=== PATIENT | female | born 1950 | race Caucasian/White ===

== ENCOUNTER 2018-07-04 00:30 | Inpatient (IN) | payer OTHER ==
[2018-07-04] VITALS (7 sets, daily range): BP systolic 116–161; BP diastolic 52–98
[~2018-07-04] VITALS: Ht 165.1 cm; Wt 99.8 kg
[2018-07-04 01:31] LABS: CALCIUM 9.1 mg/dL (8.5-10.1); CREATININE 1.4 mg/dL (0.6-1.3)
[2018-07-04 01:31] LABS: BE -0.7 mmol/L (-2 to +3); HCO3 22.2 mmol/L (22.0-26.0); PCO2 29.9 mmHg (35.0-45.0); PO2 63.7 mmHg (75.0-100.0); pH 7.488 (7.340-7.450)
[2018-07-04 01:36] LABS: ALBUMIN 2.8 g/dL (3.4-5.0); TOTAL BILIRUBIN 0.5 mg/dL (<0.1-1.0); TOTAL PROTEIN 6.2 g/dL (6.4-8.2)
[2018-07-04 01:38] LABS: HEMATOCRIT 25.2 % (37.0-47.0); HEMOGLOBIN 8.3 gm/dL (12.0-15.0); MCH 31.8 pg (26.0-34.0); MCHC 32.8 g/dL (28.0-37.0); MCV 96.9 fL (80.0-100.0); MPV 7.3 fl. (7.2-11.1); PLATELET COUNT* 317 thou/uL (150-400); RDW-CV 15.3 % (10.5-14.5); WBC 10.1 thou/uL (4.0-11.0)
[2018-07-04 01:39] LABS: NUCLEATED RBCS 0 /100WBC
[2018-07-04 01:51] LABS: APTT 29.1 Seconds (25.0-31.3); PROTIME 10.3 Seconds (9.20-11.50)
[2018-07-04 02:02] LABS: URINE BILIRUBIN NEGATIVE (Negative); URINE BLOOD NEGATIVE (Negative); URINE CLARITY CLEAR; URINE COLOR YELLOW; URINE GLUCOSE-RANDOM 3+ (Negative); URINE KETONES NEGATIVE (Negative); URINE LEUKOCYTES-REFLEX NEGATIVE (Negative); URINE NITRITE-REFLEX NEGATIVE (Negative); URINE PROTEIN TRACE (Negative); URINE SPECIFIC GRAVITY 1.015 (1.005-1.030); URINE UROBILINOGEN 0.2 E.U./dl (0.2-1.0)
[2018-07-04 05:06] LABS: ABSOLUTE LYMPHOCYTES 1.1 thou/uL (0.8-5.3); ABSOLUTE MONOCYTES 0.6 thou/uL (0.0-1.2); ABSOLUTE NEUTROPHILS 8.4 thou/uL (1.6-8.1)
[2018-07-04 05:07] LABS: ANISOCYTOSIS 1+; PLATELET ESTIMATE ADEQUATE; TOXIC GRANULATION Occasional
--- NOTE | 2018-07-04 05:54 | NUR ---
RECEIVED REPORT FROM ED. PT TRANSFERRED TO 213. PT A&OX4. VSS. ADMISSION HISTORY AND PHYSICAL ASSESSMENT COMPLETED. PT ON O2 AT 4L WITH 98% O2 SAT. PT TRACING SR PVC ON TELE. PT UP STANDBY ASSIST TO TOILET DUE TO RECENT FALL LIKE 2 WKS AGO. PT HAS A FRACTURE ON HER RIGHT ARM COVERED WITH CAST & SPLINT WITH PLATES & SCREWS ACCORDING TO PT. PT C/O OF RIGHT ARM RADIATING TO CHEST PAIN-PAIN MEDS GIVEN PER MAR WITH PARTIAL RELIEF. PT INSTRUCTED ON NPO ORDERED. COMMUNICATES UNDERSTANDING. ACCORDING TO PT SHE CANT TAKE IBUPROFEN/ TYLENOL PER HER ACO COORDINATOR. PT REFUSED TO SIGN CONSENT FOR TREATMENT OF NOW SHE WAS NOT SURE IF THE INSURANCE WILL COVER HER HOSPITAL BILL.PT ALSO REQUESTED TO TALK TO CASE MANAGEMENT. PT IS UNSURE OF HER MEDICATIONS AND WERE AWAITING FOR MEDICAL RECORDS FROM [facility] WHERE SHE WAS ADMITTED FOR 2 WKS AND WAS JUST DISCHARGED YESTERDAY. MEDICAL RECORDS REQUEST FORM WAS FAXED THIS AM. PT ORIENTED TO ROOM AND CALL LIGHT. CALL LIGHT WITHIN REACH. BED IN LOW POSITION. BED ALARM ON.
[2018-07-04] MEDS ORDERED: NOVOLOG100 UNIT/1 SUBQ (09:53)
[2018-07-04] MEDS ORDERED: LANTUS SUBQ (09:53)
[2018-07-04] MEDS ORDERED: ASPIR 8181 M1 PO (09:54)
--- NOTE | 2018-07-04 15:13 | NUR ---
PT.ADMITTED TODAY. HAS MANY CONCERNS REGARDING WHAT WILL BE COVERED UNDER HER INSURANCE AND WHAT WON'T BE COVERED. EXPLAINED EVERYTHING WILL BE COVERED UNDER HER INPT.DRG STAY. SHE WILL HAVE TO PAY DAILY HOSPITAL FEE REQUIRED BY HER INSURANCE. SHE HAD MANY COMPLAINTS REGARDING HER STAY [place] [facility]. WAS DISCHARGED YESTERDAY FROM THERE. SHE HAD FALLEN AT THE [facility] AND WAS TAKEN THERE FOR FX R ARM/ELBOW. HAD SURGERY AND HAD TO STAY APPROX.2 WKS. VERY CONCERNED IF SHE WILL NEED O2 AT DISCHARGE AND HOW MUCH IT WILL COST. ALSO CONCERNED IF SHE IS ON THE CORRECT MEDICATIONS OR NOT. CONCERNS DISCUSSED WITH OMID VALLES. SHE AGREED TO HAVE HER VQ SCAN. TRANSPORTER WILL RETURN TO PICK HER UP. PT.LIVES ALONE. HER SON, OSVALDO,STAYS WITH HER ALOT. SHE USES A CANE. DAUGHTER IS ALSO SUPPORTIVE. CM WILL FOLLOW FOR DISCHARGE.
--- NOTE | 2018-07-04 15:32 | 2DMMODE ---
[place] [address] 2 D/M-MODE ECHOCARDIOGRAM Name: GUCCI GUTHRIE Room: [address] IN [facility]#: [id number] Admission: 07/04/18 Attend Phys: Jose Luis Gaspar Discharge: Date of : 48 Date of Service: 07/04/18 1531 Report #: [id number] THIS REPORT FOR: //name// APPROVED REPORT Study performed: 07/04/2018 10:51:12 EXAM: Comprehensive 2D, Doppler, and color-flow Echocardiogram Patient Location: In-Patient Room #: Count includes the [facility] Status: routine BSA: 2.06 HR: 70 bpm BP: 126/98 mmHg Rhythm: NSR Other Information Study Quality: Good Indications Dyspnea 2D Dimensions IVSd: 11.34 (7-11mm) LVOT Diam: 19.44 (18-24mm) LVDd: 59.46 mm PWd: 9.84 (7-11mm) Ascending Ao: 31.40 (22-36mm) LVDs: 46.31 (25-40mm) Aortic Root: 28.97 mm Volumes Left Atrial Volume (Systole) LA ESV Index: 26.60 mL/m2 Aortic Valve AoV Peak Kaiser.: 1.57 m/s AO Peak Gr.: 9.87 mmHg LVOT Max P.20 mmHg AO Mean Gr.: 5.65 mmHg LVOT Mean P.00 mmHg LVOT Max V: 1.02 m/s AO V2 VTI: 32.01 cm LVOT Mean V: 0.65 m/s MATT (VTI): 2.08 cm2 LVOT V1 VTI: 22.38 cm Mitral Valve E/A Ratio: 1.46 MV Decel. Time: 176.38 ms MV E Max Kaiser.: 1.34 m/[place] [address] 2 D/M-MODE ECHOCARDIOGRAM Name: GUCCI GUTHRIE Room: [address] IN .R.#: [id number] Admission: 07/04/18 Attend Phys: Jose Luis Gaspar Discharge: Date of : 48 Date of Service: 07/04/18 1531 Report #: [id number] MV PHT: 51.15 ms MVA (PHT): 4.30 cm2 TDI E/Lateral E': 9.57 E/Medial E': 22.33 Medial E' Kaiser.: 0.06 m/s Lateral E' Kaiser.: 0.14 m/s Pulmonary Valve PV Peak Kaiser.: 1.05 m/s PV Peak Gr.: 4.42 mmHg Tricuspid Valve RAP Estimate: 5.00 mmHg TR Peak Gr.: 31.15 mmHg RVSP: 36.00 mmHg PA Pressure: 36.00 mmHg Left Ventricle Left ventricle is mildly dilated. There is global hypokinesis with akinesis of the inferior wall. There is normal left ventricular wall thickness. Left ventricular systolic function is mildly decreased. LVEF is 40-45%. Transmitral Doppler flow pattern suggests restrictive physiology. Right Ventricle The right ventricle is normal size. The right ventricular systolic function is normal. Atria The left atrium size is normal. The right atrium size is normal. Aortic Valve The aortic valve is normal in structure. No aortic regurgitation is present. There is no aortic valvular stenosis. Mitral Valve The mitral valve is normal in structure. Trace mitral regurgitation. No evidence of mitral valve stenosis. Tricuspid Valve The tricuspid valve is normal in structure. Mild tricuspid regurgitation. Mild pulmonary hypertension. Pulmonic Valve The pulmonary valve is normal in structure. Trace [place] [address] 2 D/M-MODE ECHOCARDIOGRAM Name: GUCCI GUTHRIE Room: [address] IN [facility]#: [id number] Admission: 07/04/18 Attend Phys: Jose Luis Gaspar Discharge: Date of : 48 Date of Service: 07/04/18 1531 Report #: [id number] Great Vessels The aortic root is normal in size. IVC is normal in size and collapses >50% with inspiration. Pericardium There is no pericardial effusion. <Conclusion> Left ventricle is mildly dilated. There is normal left ventricular wall thickness. Left ventricular systolic function is mildly decreased. LVEF is 40-45%. Transmitral Doppler flow pattern suggests restrictive physiology. There is global hypokinesis with akinesis of the inferior wall. Trace mitral regurgitation. Mild tricuspid regurgitation. Mild pulmonary hypertension. IVC is normal in size and collapses >50% with inspiration. <ELECTRONICALLY SIGNED> By: Jovani Saleem MD, FACC 07/04/18 [phone] Jovani Saleem MD, FACC /INF
[2018-07-04] MEDS ORDERED: LOPRESSOR50 PO (16:34)
[2018-07-04] MEDS ORDERED: LIPITOR80 MG PO (16:35)
[2018-07-04] MEDS ORDERED: GABAPENTIN 100100 MG PO (16:40)
--- NOTE | 2018-07-04 16:43 | EKG ---
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: [facility] : 1950 Requested By: Marika Mcgee Order Number: [id number] MD: Trev Hu Measurements Intervals [place] Rate: 94 P: 50 VT: 168 QRS: 5 QRSD: 92 T: 63 QT: 378 QTc: 473 Interpretive Statements Sinus rhythm ST depr, consider ischemia, anterolateral lds Compared to ECG 06/13/2012 11:52:13 Possible ischemia now present Electronically Signed On 07-04-2018 16:43:04 CDT by Trev Hu [email or web address] <ELECTRONICALLY SIGNED> By: Terv Hu MD, [facility] 07/04/18 1643 0043 0043 Trev Hu MD, [facility] /EPI
[2018-07-04] MEDS ORDERED: TYLENOL EXTRA500 MG PO (16:46)
[2018-07-04] MEDS ORDERED: SYNTHROID50 MCG PO (16:48)
[2018-07-04] MEDS ORDERED: ACCUPRIL10 MG PO (16:50)
--- NOTE | 2018-07-04 18:01 | NUR ---
PT ALERT AND ORIENTED X4. PT SATURATION MAINTAINED TO 97% WITH 4L O2, TITRATED DOWN TO 3L AT 1000, SAT 96%. NO SIGNS OF DYSPNEA. UP BY STANDBY ASSIST. WAS CONCERNED ABOUT HER FINANCIAL SITUATION AND INSURANCE COVERAGE, CM NOTIFIED. PT IS IN FLUID RESTRICTION OF 2000ML IN 24HRS INCLUDING IV FLUIDS. SLIDING SCALE INSULIN GIVEN. CARB CONTROL DIET. HAS BACK PROBLEMS, CANT BE IN ONE POSITION FOR TOO LONG, PT STATED, LIKES TO SIT BEDSIDE TIME TO TIME. SEEN SLEEPING IN THE ROOM WHILE HOURLY ROUNDS. HAS GOOD APPETITE. HOURLY ROUNDINGS DONE FOR PT SAFETY. COMPLAINED OF PAIN IN RT ARM, PRN HYDROCODONE GIVEN. FALL PRECAUTIONS MAINTAINED. CALL LIGHT WITHIN REACH. WILL CONTINUE TO MONITOR
[2018-07-04 19:08] LABS: eGFR IF AFRICAN AMERICAN 54 (>59)
[2018-07-04 23:07] LABS: GLYCOHEMOGLOBIN (HGB A1C) 9.6 % (4.8-5.6)
[2018-07-05] VITALS: BP 116/58
[2018-07-05 03:07] LABS: PARATHYROID HORMONE 50 pg/mL (15-65)
[2018-07-05 04:00] VITALS: BP 130/53
[2018-07-05 04:28] LABS: ABSOLUTE BASOPHILS 0.1 thou/uL (0.0-0.2); ABSOLUTE EOSINOPHILS 0.3 thou/uL (0.0-0.7); ABSOLUTE LYMPHOCYTES 1.9 thou/uL (0.8-5.3); ABSOLUTE MONOCYTES 0.9 thou/uL (0.0-1.2); BASOPHILS 1.1 %; EOSINOPHILS 2.7 %; HEMATOCRIT 21.6 % (37.0-47.0); HEMOGLOBIN 7.2 gm/dL (12.0-15.0); LYMPHOCYTES 20.4 %; MCH 31.1 pg (26.0-34.0); MCHC 33.2 g/dL (28.0-37.0); MCV 93.5 fL (80.0-100.0); MONOCYTES 10.1 %; MPV 6.6 fl. (7.2-11.1); NUCLEATED RBCS 0 /100WBC; PLATELET COUNT* 366 thou/uL (150-400); POLYS 65.7 %; RBC 2.31 mil/uL (4.20-5.00); RDW-CV 14.2 % (10.5-14.5); WBC 9.2 thou/uL (4.0-11.0)
[2018-07-05 04:52] LABS: % SATURATION 13 % (20-39); IRON 20 ug/dL (50-175)
--- NOTE | 2018-07-05 04:52 | NUR ---
ASSUMED CARE OF PT AFTER REPORT AT 1930. PT A&OX4. VSS. PHYSICAL ASSESSMENT COMPLETED AND CHARTED. PT ON O2 AT 2L WITH 96% O2 SAT. PT TRACING SR ON TELE. PT UP STANDBY TO TOILET. PT C/O OF RIGHT ARM PAIN RADIATING TO CHEST-PAIN MEDS GIVEN PER MAR WITH PARTIAL RELIEF. PT REQUESTED FOR ADDITIONAL PAIN MEDS-DR SANCHEZ INFORMED WITH NEW ORDERS. WASHED PT HAIR PER PTS REQUEST. PT RESTED WELL ON BED. CALL LIGHT WITHIN REACH. BED IN LOW POSITION. BED ALARM ON.
[2018-07-05 04:54] LABS: ALBUMIN 2.4 g/dL (3.4-5.0); CALCIUM 8.8 mg/dL (8.5-10.1); CREATININE 1.5 mg/dL (0.6-1.3); PHOSPHORUS* 4.1 mg/dL (2.5-4.9); POTASSIUM 4.5 mmol/L (3.5-5.1); TOTAL BILIRUBIN 0.4 mg/dL (<0.1-1.0); TOTAL PROTEIN 6.2 g/dL (6.4-8.2)
[2018-07-05 08:07] VITALS: BP 129/67
[2018-07-05 11:58] VITALS: BP 130/66
[2018-07-05] MEDS ORDERED: LASIX 20 MG TAB20 MG PO (13:55)
[2018-07-05 15:17] VITALS: BP 130/66
[2018-07-05 15:32] VITALS: BP 130/66
--- NOTE | 2018-07-05 15:33 | NUR ---
Pt discharging to home today and qualifies for home o2. Referral sent to [facility], they will deliever tank
--- NOTE | 2018-07-05 16:30 | NUR ---
VSS, ASSUMED CARE OF PT IN THE AM, ASSESSMENT PERFORMED AND CHARTED FALL PRECAUTIONS IN PLACE AND CALL LIGHT IN REACH, PT IS A&O4 ON 2L NC AND STATES PAIN IN HER RIGHT ARM, PT GOAL IS TO IMPROVE BREATHING AND D/C TO HOME, PT IS TRACING SR ON THE MONITOR AND SHE IS UP WTIH AD MOON, AT THIS TIME PT HAS RECIEVED D/C ORDERS AND FILLED OUT MEDITCATIONS, HOME O2 HAS BEEN SET UP AND IV AND TELE MONITOR TAKEN OUT ALL BELONGINGS GATHERED AND PLACE WITH PT, WILL FOLLOW WITH PLAN OF CARE, HOURLY ROUNDS COMPLETED,
[2018-08-11] MEDS ORDERED: NOVOLOG100 UNIT/1 SUBQ (05:08)
[2018-08-11] MEDS ORDERED: VITAMIN B-12500 MCG PO (05:09)
[2018-08-11] MEDS ORDERED: VITAMIN D1000 UNI1 PO (05:10)
[2018-08-11] MEDS ORDERED: CUBICIN500 MG IVPB (05:13)
[2018-08-11] MEDS ORDERED: NORCO 5-325 TA1 EACH PO (05:14)
[2018-08-11] MEDS ORDERED: COLACE100 MG PO (05:14)
[2018-08-11] MEDS ORDERED: MIRALAX17 GM PO (05:14)
[2018-08-11] MEDS ORDERED: CENTRUM SILVER1 EAC2 PO (05:15)
[2018-08-11] MEDS ORDERED: VITAMIN E400 UNIT PO (05:15)
[2018-08-11] MEDS ORDERED: SPIRONOLACTONE25 M1 PO (05:16)
== END 2018-07-05 18:05 | disposition home or self-care (01) | DRG 682 ==
LOC: M.ERS 00:30 → M.TBA-ER 03:01 → M.2W 03:01
PROVIDERS: Family Medicine; Personal Emergency Response Attendant; ADMIT Internal Medicine
DX: N17.9 Acute kidney failure, unspecified (principal); I50.33 Acute on chronic diastolic (congestive) heart failure; J96.20 Acute and chronic respiratory failure, unspecified whether with hypoxia or hypercapnia; I13.0 Hypertensive heart and chronic kidney disease with heart failure and stage 1 through stage 4 chronic kidney disease, or unspecified chronic kidney disease; S42.301A Unspecified fracture of shaft of humerus, right arm, initial encounter for closed fracture; I25.10 Atherosclerotic heart disease of native coronary artery without angina pectoris; N18.3 Chronic kidney disease, stage 3 (moderate); D50.9 Iron deficiency anemia, unspecified; K76.0 Fatty (change of) liver, not elsewhere classified; E11.319 Type 2 diabetes mellitus with unspecified diabetic retinopathy without macular edema; E11.22 Type 2 diabetes mellitus with diabetic chronic kidney disease; G89.29 Other chronic pain; M54.9 Dorsalgia, unspecified; Z60.2 Problems related to living alone; Z95.5 Presence of coronary angioplasty implant and graft; Z79.899 Other long term (current) drug therapy; Z88.6 Allergy status to analgesic agent; Z79.4 Long term (current) use of insulin; Z82.49 Family history of ischemic heart disease and other diseases of the circulatory system; Z83.3 Family history of diabetes mellitus; Z90.710 Acquired absence of both cervix and uterus; I25.2 Old myocardial infarction; Z28.21 Immunization not carried out because of patient refusal; W18.39XA Other fall on same level, initial encounter; Y93.89 Activity, other specified; Y92.89 Other specified places as the place of occurrence of the external cause; Y99.8 Other external cause status

== ENCOUNTER 2019-07-10 11:17 | Inpatient (IN) | payer OTHER ==
[2019-07-10] VITALS (11 sets, daily range): BP systolic 104–148; BP diastolic 50–82
[~2019-07-10] VITALS: Ht 165.1 cm; Wt 101.2 kg
[~2019-07-10 11:17] MED LIST: ACCUPRIL10 MG PO; ASPIR 8181 M1 PO; CEFUROXIME250 MG PO; CENTRUM SILVER1 EAC2 PO; COLACE100 MG PO; CUBICIN500 MG IVPB; DAPTOMYCIN500 MG IV; FUROSEMIDE 40 M40 MG PO; GABAPENTIN 100100 MG PO; IRON325 PO; LANTUS SUBQ; LASIX 20 MG TAB20 MG PO; LIPITOR80 MG PO; LOPRESSOR50 PO; METOPROLOL SUCC50 MG PO; MIRALAX17 GM PO; NORCO 10-325 T1 EACH PO; NORCO 5-325 TA1 EACH PO; NOVOLOG100 UNIT/1 SUBQ; SPIRONOLACTONE25 M1 PO; SYNTHROID50 MCG PO; TYLENOL EXTRA500 MG PO; VITAMIN B-12500 MCG PO; VITAMIN D1000 UNI1 PO; VITAMIN E400 UNIT PO
--- NOTE | 2019-07-10 12:02 | NUR ---
PROVIDER NOTIFIED OF B/P
[2019-07-10 12:06] LABS: ABSOLUTE BASOPHILS 0.1 thou/uL (0.0-0.2); ABSOLUTE EOSINOPHILS 0.5 thou/uL (0.0-0.7); ABSOLUTE LYMPHOCYTES 1.2 thou/uL (0.8-5.3); ABSOLUTE MONOCYTES 0.6 thou/uL (0.0-1.2); ABSOLUTE NEUTROPHILS 5.2 thou/uL (1.6-8.1); BASOPHILS 1.2 %; EOSINOPHILS 6.1 %; HEMATOCRIT 27.3 % (37.0-47.0); HEMOGLOBIN 9.2 gm/dL (12.0-15.0); LYMPHOCYTES 16.3 %; MCHC 33.6 g/dL (28.0-37.0); MCV 95.1 fL (80.0-100.0); MONOCYTES 8.1 %; MPV 7.2 fl. (7.2-11.1); NUCLEATED RBCS 0 /100WBC; PLATELET COUNT* 320 thou/uL (150-400); POLYS 68.3 %; RBC 2.87 mil/uL (4.20-5.00); RDW-CV 13.5 % (10.5-14.5); WBC 7.6 thou/uL (4.0-11.0)
[2019-07-10 12:10] LABS: PROTIME 10.4 Seconds (9.20-11.50)
[2019-07-10 12:11] LABS: CALCIUM 8.8 mg/dL (8.5-10.1); POTASSIUM 3.9 mmol/L (3.5-5.1)
[2019-07-10 12:22] LABS: ALBUMIN 2.8 g/dL (3.4-5.0); TOTAL BILIRUBIN 0.4 mg/dL (<0.1-1.0); TOTAL PROTEIN 6.2 g/dL (6.4-8.2)
[2019-07-10 13:06] LABS: URINE BILIRUBIN NEGATIVE (Negative); URINE BLOOD NEGATIVE (Negative); URINE CLARITY CLEAR; URINE COLOR YELLOW; URINE GLUCOSE-RANDOM 2+ (Negative); URINE KETONES NEGATIVE (Negative); URINE LEUKOCYTES-REFLEX NEGATIVE (Negative); URINE NITRITE-REFLEX NEGATIVE (Negative); URINE PROTEIN 2+ (Negative); URINE SPECIFIC GRAVITY 1.025 (1.005-1.030); URINE UROBILINOGEN 0.2 E.U./dl (0.2-1.0)
[2019-07-10 13:16] LABS: CASTS None Seen /LPF (None Seen); CRYSTALS None Seen /LPF (None Seen); SQUAMOUS 4-10 Moderate /LPF (0-3); URINE RBC 0-2 Rare /HPF (0-2); URINE WBC-REFLEX 0-5 Rare /HPF (0-5)
--- NOTE | 2019-07-10 16:16 | EKG ---
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 : 1950 Requested By: Eric Owen Order Number: [id number] MD: Trev Hu Measurements Intervals [place] Rate: 69 P: 32 NC: 171 QRS: -10 QRSD: 98 T: 61 QT: 443 QTc: 475 Interpretive Statements Sinus rhythm Left ventricular hypertrophy Baseline wander in lead(s) V1 Compared to ECG 07/04/2018 00:43:36 Left ventricular hypertrophy now present Possible ischemia no longer present Electronically Signed On 07-10-2019 16:16:04 CDT by Trev Hu [email or web address] <ELECTRONICALLY SIGNED> By: Trev Hu MD, FACC 07/10/19 1616 1124 1124 Trev Hu MD, [facility] /EPI
--- NOTE | 2019-07-10 18:54 | NUR ---
THIS WATER PLANT PUMP OPERATOR ASSUMED CARE OF PT AT 1545 PRESENTED IN THE ER BY EMS FOR HYPOTENSION, DIZZNIESS, AND DEHYDRATION. pT RECEIVED [address] THE WAY TO ER AND 1L IN ER. PRESSURE ARE STABLE PT IS MED SURG/TELEY STATUS
[2019-07-11] VITALS (7 sets, daily range): BP systolic 134–178; BP diastolic 50–72
[2019-07-11 03:50] LABS: CALCIUM 8.8 mg/dL (8.5-10.1); CREATININE 1.6 mg/dL (0.6-1.3); POTASSIUM 3.5 mmol/L (3.5-5.1)
--- NOTE | 2019-07-11 06:56 | NUR ---
Pt reports she did not sleep well overnight due to back pain (chronic 2/T spinal stenosis). Requested home dose of gabapentin, dose received approx. 0445. At 0520, pt c/o nausea and pain to right side of chest, non-radiating, rates /10. 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 BP 160/69, BG 191. EKG performed, appears unchanged from EKG from ED on 07/10. Paged Dr. Pereyra, orders received for zofran. Pt appeared to be asleep soon afterwards. Reports earlier in shift that she is hopeful of being discharged today. Still awaiting medical records from recent stay at [facility] to verify medications (pt cannot remember all medications in detail). Will continue to monitor.
--- NOTE | 2019-07-11 09:41 | NUR ---
8500 ASSUMED CARE OF PATIENT. SEE DOCUMENTED ASSESSMENT. PT C/O EPIGASTRIC PAIN AND NAUSEA. MESSAGE TO DR CHRISTINA MCKEON. PT IS TELE STATUS IN THE ICU
--- NOTE | 2019-07-11 10:34 | NUR ---
REPORT CALLED TO EDGARDO. PATIENT IS FEELING BETTER.
--- NOTE | 2019-07-11 10:59 | NUR ---
1045 REPORT TO EDGARDO ANNE. TRANSFERRED TO ROOM 205 WITH ALL RECORDS AND BELONGINGS.
--- NOTE | 2019-07-11 11:26 | NUR ---
ICU rounds: Continues to be nauseous, Pt is tele status and has orders to transfer to room 205. Pt is A&O. Resides at home, son lives with her. Independent. Pt uses a cane for mobility. No hx of HH. Hx of skilled at [facility]. Goal is home at dc, no needs anticipated.
[2019-07-11 12:00] LABS: ABSOLUTE BASOPHILS 0.1 thou/uL (0.0-0.2); ABSOLUTE EOSINOPHILS 0.6 thou/uL (0.0-0.7); ABSOLUTE LYMPHOCYTES 1.8 thou/uL (0.8-5.3); ABSOLUTE MONOCYTES 0.8 thou/uL (0.0-1.2); ABSOLUTE NEUTROPHILS 6.3 thou/uL (1.6-8.1); BASOPHILS 1.4 %; EOSINOPHILS 6.3 %; HEMATOCRIT 27.8 % (37.0-47.0); HEMOGLOBIN 9.4 gm/dL (12.0-15.0); LYMPHOCYTES 18.9 %; MCH 32.3 pg (26.0-34.0); MCHC 33.8 g/dL (28.0-37.0); MCV 95.4 fL (80.0-100.0); MONOCYTES 8.4 %; MPV 7.4 fl. (7.2-11.1); NUCLEATED RBCS 0 /100WBC; PLATELET COUNT* 318 thou/uL (150-400); RBC 2.91 mil/uL (4.20-5.00); RDW-CV 13.7 % (10.5-14.5); WBC 9.7 thou/uL (4.0-11.0)
[2019-07-11 12:08] LABS: DIRECT BILIRUBIN 0.1 mg/dL (<0.1-0.3); TOTAL BILIRUBIN 0.3 mg/dL (<0.1-1.0)
[2019-07-11] MEDS ORDERED: PLAVIX 75 MG TA75 MG PO (13:11)
[2019-07-11] MEDS ORDERED: IMDUR 30 MG TAB30 M1 PO (13:14)
[2019-07-11] MEDS ORDERED: CARVEDILOL12.5 MG PO (13:15)
[2019-07-11] MEDS ORDERED: NORVASC2.5 M1 PO (13:23)
[2019-07-11] MEDS ORDERED: COLCHICINE0.6 M1 PO (14:33)
--- NOTE | 2019-07-11 17:26 | NUR ---
CAME UP FROM ICU AROUND 1045. AGREE WITH THE ASSESSMENT COMPLETED IN ICU. ABLE TO MAKE NEEDS KNOWN. C/O ABD PAIN AND NOTIFIED DR AND NEW ORDERS GIVEN. PT RESTING IN BED AT THIS TIME. WILL CONTINUE TO MONITOR.
[2019-07-12] VITALS: BP 132/54
[2019-07-12 04:00] VITALS: BP 126/57
[2019-07-12 04:14] LABS: HEMATOCRIT 26.2 % (37.0-47.0); HEMOGLOBIN 8.8 gm/dL (12.0-15.0); MCHC 33.5 g/dL (28.0-37.0); MCV 95.3 fL (80.0-100.0); MPV 6.9 fl. (7.2-11.1); RBC 2.75 mil/uL (4.20-5.00); RDW-CV 13.6 % (10.5-14.5); WBC 8.4 thou/uL (4.0-11.0)
[2019-07-12 04:22] LABS: CREATININE 1.4 mg/dL (0.6-1.3)
--- NOTE | 2019-07-12 05:20 | NUR ---
ASSUMED CARE OF PT AFTER REPORT AT 1930. PT A&OX4. VSS. PHYSICAL ASSESSMENT COMPLETED AND CHARTED. PT ON RA. PT TRACING SR/PVC ON TELE. PT UPSTANDBY TO RESTROOM. PT DENIES DIZZINESS OR N/V. PT ABLE TO SLEEP WELL ON BED. CALL LIGHT WITHIN REACH. CALL LIGHT WITHIN REACH.
[2019-07-12 08:00] VITALS: BP 134/56
[2019-07-12] MEDS ORDERED: CARVEDILOL3.125 MG PO (10:52)
[2019-07-12] MEDS ORDERED: NORVASC5 M1 PO (10:52)
[2019-07-12] MEDS ORDERED: NEURONTIN 300300 M1 PO (10:52)
[2019-07-12] MEDS ORDERED: REGLAN 10 MG TA10 MG PO (10:52)
[2019-07-12 11:46] VITALS: BP 134/56
[2019-07-12 12:00] VITALS: BP 135/58
--- NOTE | 2019-07-12 13:31 | NUR ---
ASSUMED PT CARE AT 0730. ASSESSMENT COMPLETED CHARTED. ABLE TO MAKE NEEDS KNOWN. UP AD MOON. NO C/O PAIN OTHER THAN CHRONIC BACK PAIN. DISCHARGE APPROVED AND GAVE PT DISCHARGE PAPERWORK, SCRIPTS, MEDICATION INFO, AND TOOK OUT IV AND TOOK OFF HEART MONITOR. PT TRANSPORTED TO [place] BY THIS NURSE IN A WHEELCHAIR AROUND 1325 WITH CAB VOUCHER. NO COMMENTS OR QUESTIONS NOTED.
--- NOTE | 2019-07-12 14:20 | EKG ---
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 Contract Representative: BRITT : 1950 Requested By: Nadja Pereyra Order Number: [id number] MD: Kamaljit Pate Measurements Intervals [place] Rate: 80 P: 46 [place]: 171 QRS: 8 QRSD: 100 T: 52 QT: 434 QTc: 501 Interpretive Statements Sinus rhythm Left ventricular hypertrophy Prolonged QT interval Compared to ECG 07/10/2019 11:24:34 Prolonged QT interval now present Electronically Signed On 07-12-2019 14:20:38 CDT by Kamaljit Pate [email or web address] <ELECTRONICALLY SIGNED> By: Adalgisa Pate MD, [facility] 07/12/19 1420 0531 0531 Adalgisa Pate MD, [facility] /EPI
--- NOTE | 2019-07-12 14:23 | EKG ---
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: : 1950 Requested By: Nadja Pereyra Order Number: [id number] MD: Kamaljit Pate Measurements Intervals [place] Rate: 80 P: 48 [place]: 168 QRS: 0 QRSD: 104 T: 55 QT: 397 QTc: 458 Interpretive Statements Sinus rhythm Ventricular premature complex Left ventricular hypertrophy Compared to ECG 07/10/2019 11:24:34 Ventricular premature complex(es) now present Electronically Signed On 07-12-2019 14:22:53 CDT by Kamaljit Pate [email or web address] <ELECTRONICALLY SIGNED> By: Adalgisa Pate MD, [facility] 07/12/19 1422 1148 1148 F. Kamaljit Pate MD, [facility] /EPI
== END 2019-07-12 13:18 | disposition home health service (06) | DRG 291 ==
LOC: M.ERS 11:17 → M.TBA-ER 13:04 → M.ICU 13:04 → M.TBA-ER 16:12 → M.ICU 16:52 → M.2W 07-11 10:57
PROVIDERS: Emergency Medicine; ADMIT Family Medicine
DX: I13.0 Hypertensive heart and chronic kidney disease with heart failure and stage 1 through stage 4 chronic kidney disease, or unspecified chronic kidney disease (principal); I50.23 Acute on chronic systolic (congestive) heart failure; N17.9 Acute kidney failure, unspecified; I95.2 Hypotension due to drugs; I25.10 Atherosclerotic heart disease of native coronary artery without angina pectoris; E11.65 Type 2 diabetes mellitus with hyperglycemia; E78.5 Hyperlipidemia, unspecified; E03.9 Hypothyroidism, unspecified; N18.3 Chronic kidney disease, stage 3 (moderate); E11.22 Type 2 diabetes mellitus with diabetic chronic kidney disease; D64.9 Anemia, unspecified; I50.9 Heart failure, unspecified; M10.9 Gout, unspecified; E11.42 Type 2 diabetes mellitus with diabetic polyneuropathy; E11.43 Type 2 diabetes mellitus with diabetic autonomic (poly)neuropathy; K31.84 Gastroparesis; G89.29 Other chronic pain; M54.9 Dorsalgia, unspecified; Z88.5 Allergy status to narcotic agent; Z95.5 Presence of coronary angioplasty implant and graft; Z88.1 Allergy status to other antibiotic agents; Z90.710 Acquired absence of both cervix and uterus; Z82.49 Family history of ischemic heart disease and other diseases of the circulatory system; Z83.3 Family history of diabetes mellitus; E86.0 Dehydration

== ENCOUNTER 2019-07-31 11:01 | Observation (INO) | payer OTHER ==
[~2019-07-31] VITALS: Ht 165.1 cm; Wt 99.8 kg
[~2019-07-31 11:01] MED LIST changes: +CARVEDILOL12.5 MG PO; +CARVEDILOL3.125 MG PO; +COLCHICINE0.6 M1 PO; +IMDUR 30 MG TAB30 M1 PO; +NEURONTIN 300300 M1 PO; +NORVASC2.5 M1 PO; +NORVASC5 M1 PO; +PLAVIX 75 MG TA75 MG PO; +REGLAN 10 MG TA10 MG PO
[2019-07-31 11:03] VITALS: BP 108/50
[2019-07-31 11:49] LABS: ABSOLUTE BASOPHILS 0.1 thou/uL (0.0-0.2); ABSOLUTE EOSINOPHILS 0.5 thou/uL (0.0-0.7); ABSOLUTE LYMPHOCYTES 1.5 thou/uL (0.8-5.3); ABSOLUTE MONOCYTES 0.7 thou/uL (0.0-1.2); BASOPHILS 0.9 %; EOSINOPHILS 6.4 %; HEMATOCRIT 28.2 % (37.0-47.0); HEMOGLOBIN 9.6 gm/dL (12.0-15.0); LYMPHOCYTES 19.3 %; MCH 32.4 pg (26.0-34.0); MCV 95.3 fL (80.0-100.0); MONOCYTES 8.4 %; MPV 7.5 fl. (7.2-11.1); NUCLEATED RBCS 0 /100WBC; PLATELET COUNT* 270 thou/uL (150-400); RBC 2.95 mil/uL (4.20-5.00); RDW-CV 13.7 % (10.5-14.5); WBC 7.8 thou/uL (4.0-11.0)
[2019-07-31 11:59] LABS: CALCIUM 8.6 mg/dL (8.5-10.1); CREATININE 1.8 mg/dL (0.6-1.3); POTASSIUM 3.7 mmol/L (3.5-5.1)
[2019-07-31 12:02] LABS: APTT 22.9 Seconds (25.0-31.3); PROTIME 10.2 Seconds (9.20-11.50)
[2019-07-31 12:03] LABS: ALBUMIN 2.8 g/dL (3.4-5.0); TOTAL BILIRUBIN 0.3 mg/dL (<0.1-1.0); TOTAL PROTEIN 6.2 g/dL (6.4-8.2)
[2019-07-31 14:00] VITALS: BP 143/69
--- NOTE | 2019-07-31 15:23 | EKG ---
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 : 1950 Requested By: Farhan Samuel Order Number: [id number] MD: Jovani Saleem Measurements Intervals [place] Rate: 68 P: 38 [place]: 193 QRS: 1 QRSD: 107 T: 60 QT: 451 QTc: 480 Interpretive Statements Sinus rhythm Abnormal R-wave progression, early transition LVH Compared to ECG 07/11/2019 11:48:06 Ventricular premature complex(es) no longer present Electronically Signed On 07-31-2019 15:23:20 CDT by Jovani Saleem [email or web address] <ELECTRONICALLY SIGNED> By: Jovani Saleem MD, FACC 07/31/19 1523 1107 1107 Jovani Saleem MD, FAC /EPI
[2019-07-31 16:41] VITALS: BP 108/45
[2019-08-01 00:18] VITALS: BP 104/37
[2019-08-01 04:10] VITALS: BP 105/33
[2019-08-01 09:00] VITALS: BP 133/55
[2019-08-01 09:02] VITALS: BP 117/57
[2019-08-01 09:04] VITALS: BP 107/57
[2019-08-01] MEDS ORDERED: FUROSEMIDE 40 M40 MG PO (09:07)
[2019-08-01 10:52] VITALS: BP 107/57
== END 2019-08-01 12:59 | disposition home or self-care (01) ==
LOC: M.ERS 11:01 → M.2W 12:41 → M.TBA-ER 12:41 → M.2W 12:41
PROVIDERS: Emergency Medicine; ADMIT Internal Medicine
DX: I95.2 Hypotension due to drugs (principal); I25.10 Atherosclerotic heart disease of native coronary artery without angina pectoris; I13.0 Hypertensive heart and chronic kidney disease with heart failure and stage 1 through stage 4 chronic kidney disease, or unspecified chronic kidney disease; I50.22 Chronic systolic (congestive) heart failure; N18.3 Chronic kidney disease, stage 3 (moderate); E11.40 Type 2 diabetes mellitus with diabetic neuropathy, unspecified; K31.84 Gastroparesis; E03.9 Hypothyroidism, unspecified; I50.33 Acute on chronic diastolic (congestive) heart failure; E78.5 Hyperlipidemia, unspecified; E11.22 Type 2 diabetes mellitus with diabetic chronic kidney disease; M10.9 Gout, unspecified; K57.90 Diverticulosis of intestine, part unspecified, without perforation or abscess without bleeding; Z79.4 Long term (current) use of insulin; Z79.82 Long term (current) use of aspirin; Z79.899 Other long term (current) drug therapy; Z95.5 Presence of coronary angioplasty implant and graft

== ENCOUNTER 2019-10-23 23:04 | Inpatient (IN) | payer OTHER ==
[~2019-10-23] VITALS: Ht 165.1 cm; Wt 95.3 kg
[~2019-10-23 23:04] MED LIST changes: -VITAMIN D1000 UNI1 PO; +VITAMIN D400 UNIT PO
[2019-10-23 23:14] VITALS: BP 139/72
[2019-10-23 23:51] LABS: ABSOLUTE BASOPHILS 0.1 thou/uL (0.0-0.2); ABSOLUTE EOSINOPHILS 0.2 thou/uL (0.0-0.7); ABSOLUTE LYMPHOCYTES 1.1 thou/uL (0.8-5.3); ABSOLUTE MONOCYTES 0.7 thou/uL (0.0-1.2); ABSOLUTE NEUTROPHILS 8.9 thou/uL (1.6-8.1); BASOPHILS 0.8 %; EOSINOPHILS 2.2 %; HEMATOCRIT 31.8 % (37.0-47.0); HEMOGLOBIN 10.6 gm/dL (12.0-15.0); LYMPHOCYTES 10.3 %; MCH 31.4 pg (26.0-34.0); MCHC 33.3 g/dL (28.0-37.0); MCV 94.3 fL (80.0-100.0); MONOCYTES 6.6 %; MPV 7.9 fl. (7.2-11.1); NUCLEATED RBCS 0 /100WBC; PLATELET COUNT* 254 thou/uL (150-400); POLYS 80.1 %; RBC 3.37 mil/uL (4.20-5.00); RDW-CV 13.9 % (10.5-14.5); WBC 11.1 thou/uL (4.0-11.0)
[2019-10-24] VITALS (20 sets, daily range): BP systolic 119–151; BP diastolic 40–72
[2019-10-24 00:01] LABS: CALCIUM 8.8 mg/dL (8.5-10.1); CREATININE 1.8 mg/dL (0.6-1.3); POTASSIUM 4.4 mmol/L (3.5-5.1)
[2019-10-24 00:05] LABS: PROTIME 10.2 Seconds (9.20-11.50)
[2019-10-24 00:11] LABS: ALBUMIN 3.2 g/dL (3.4-5.0); TOTAL BILIRUBIN 0.4 mg/dL (<0.1-1.0); TOTAL PROTEIN 6.7 g/dL (6.4-8.2)
[2019-10-24 00:22] LABS: INFLUENZA A ANTIGEN Negative (Negative); INFLUENZA B ANTIGEN Negative (Negative)
--- NOTE | 2019-10-24 10:27 | EKG ---
[place] [address] ELECTROCARDIOGRAM REPORT Name: GUCCI GUTHRIE Room: [address] ADM IN M.R.#: [id number] Admission: 10/24/19 Attend Phys: Nadja Francois Discharge: Date of : 48 Report #: [id number] THIS REPORT FOR: //name// [facility] ED Test Date: 2019-10-23 Test Time: 23:17:52 Pat Name: GUCCI HARTZ Department: Room: [facility] Gender: F Floor Person: [place] : 1950 Requested By: Marika Mcgee Order Number: [id number] MD: Alexi Stack Measurements Intervals [place] Rate: 81 P: 37 [place]: 170 QRS: 12 QRSD: 99 T: 132 QT: 385 QTc: 447 Interpretive Statements Sinus rhythm Ventricular premature complex Repol abnrm suggests ischemia, diffuse leads Compared to ECG 07/31/2019 11:07:38 Ventricular premature complex(es) now present Early repolarization now present Possible ischemia now present Left ventricular hypertrophy no longer present Electronically Signed On 10-24-2019 10:27:13 HOMICIDE INVESTIGATOR by Alexi Stack [email or web address] <ELECTRONICALLY SIGNED> By: Alexi Stack MD, [facility] 10/24/19 1027 2317 Alexi Stack MD, [facility] /EPI
--- NOTE | 2019-10-24 10:29 | EKG ---
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
--- NOTE | 2019-10-24 14:39 | EKG ---
[place] [address] ELECTROCARDIOGRAM REPORT Name: GUCCI GUTHRIE Room: [address] ADM IN M.R.#: [id number] Admission: 10/24/19 Attend Phys: Nadja Francois Discharge: Date of : 48 Report #: [id number] THIS REPORT FOR: //name// 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1950 Requested By: Alexi Stack Order Number: [id number] MD: Alexi Stack Measurements Intervals [place] Rate: 71 P: 51 ND: 178 QRS: 30 QRSD: 109 T: 82 QT: 413 QTc: 449 Interpretive Statements Sinus rhythm Nonspecific repol abnormality, diffuse leads Compared to ECG 10/24/2019 00:59:27 Possible ischemia no longer present Electronically Signed On 10-24-2019 14:38:56 MANAGER ANALYTICAL by Alexi Stack [email or web address] <ELECTRONICALLY SIGNED> By: Alexi Stack MD, [facility] 10/24/19 1438 1342 1342 Alexi Stack MD, FAC /EPI
--- NOTE | 2019-10-24 15:58 | CARD ---
[address] [address] CARDIAC CATH REPORT Name: GUCCI GUTHRIE Room: [address] IN ..#: [id number] Admission: 10/24/19 Attend Phys: Nadja roberson mike Pacheco Discharge: Date of : 48 Report #: [id number] THIS REPORT FOR: //name// APPROVED REPORT Study performed: 10/24/2019 10:45:57 Patient Details Patient Status: In-Patient Room #: 205 The patient is a 69 year-old female Event Personnel Alexi Stack Fleet Service Clerk, Lissette Sanchez RN aircraft electrical systems specialist, Yue Tavera RTR, Reece Webster CISTERN ROOM WORKING SUPERVISOR, Susanen Fabian RTR Procedures Performed Right femoral artery access, Left heart cath, DAVID and PCI LAD single, Hemostasis Angioseal Indication Abnormal ECG, Non-STEMI , Chest pain Risk Factors Dysplipidemia , Coronary Artery Disease, Diabetes Previous Procedures/Diagnoses Previous PCI, Previous CHF Admission/Lab Medications/Medications given during procedure Heparin Unfract., Heparin 9000 units IV bolus Procedure Narrative The patient was brought electively to the Cardiac Catheterization Laboratory and was prepped and draped in a sterile manner. The right femoral was infiltrated with 2% Lidocaine subcutaneous anesthesia. A 6F Gatewood sheath was inserted into the right femoral artery. Coronary angiography was performed using coronary diagnostic catheters. The right coronary system was accessed and visualized with a Diagnostic 6F JR4 catheter. The left coronary system was accessed and visualized with a Diagnostic 6F JL4 catheter. The left ventricle was accessed and visualized with a Diagnostic 6F Pigtail catheter. Left ventricular/Aortic Valve gradient assessed via catheter pullback. Left ventriculogram was performed in LINN projection. Closure device was deployed with a 6 Fr Angioseal. The patient tolerated the procedure well and [place] [address] CARDIAC CATH REPORT Name: GUCCI GUTHRIE Room: [address] IN [facility]#: [id number] Admission: 10/24/19 Attend Phys: Nadja Francois Discharge: Date of : 48 Report #: [id number] associated with the procedure. There was no hematoma. Intraoperative Conscious Sedation Sedation start time: 12:19 Case end Time: 13:06 Fentanyl 50.0 mcg Versed 4.0 mg Fluoro Time: 5.7 minutes Dose: DAP [id number] cGycm2 1555 mGy Contrast Type and Amount: visipaque 190 Coronary Angiography The patient's coronary anatomy is right dominant. Diagnostic Cath Left Main 0% stenosis LAD proximal stent had a 99% restenosis with thrombus. Mid stent had 0% stenosis. 50% stenosis noted between the stents. Circumflex proximal stent had 0% restenosis. OM2 small vessel with a 80% stenosis Right Coronary long stent with a proximal 50% stenosis and a distal 40% stenosis RPLV small vessel with 80% stenosis noted Left Ventriculography The left ventricular ejection fraction is estimated to be 25-30%. Left ventricular wall motion abnormalities are present. There is 1+ mitral insufficiency. Akinesis noted of the base of the inferior wall and severe hypokinesis noted of the mid and distal anteroapical wall. Hemodynamics The aortic pressure is 117/46 mmHg with a mean of 55 mmHg. The left ventricular pressure is 126/6 mmHg with a mean of 23 mmHg. The left ventricular end diastolic pressure is 25 mmHg. There was no gradient across the aortic valve upon pullback. Pullback from the left ventricle to the aorta revealed no gradient across the aortic valve. PCI Technique Lesion Anticoagulation was achieved with Heparin 9000 units IV bolus. Patient was preloaded with Plavix. Percutaneous coronary intervention was performed on the proximal left anterior descending artery segment. The lesion stenosis prior to intervention was 99% with NORMA 3 flow. A 6F XBLAD 3.5 Guide Catheter was used [place] [address] CARDIAC CATH REPORT Name: GUCCI GUTHRIE Room: [address] IN [facility]#: [id number] Admission: 10/24/19 Attend Phys: Nadja Francois Discharge: Date of : 48 Report #: [id number] ostium. A 190 BMW Interventional Guidewire was used to cross the lesion. STENT DEPLOYMENT A drug-eluting stent 2.75 x 15 mm Orsiro RX was inserted and inflated up to 10atm for 24seconds. Repeat angiography revealed the following post-stent deployment results: 30% stenosis. Additional Inflation: 18atm for 14seconds. Additional Inflation: 21atm for 19seconds. POST STENT DEPLOYMENT BALLOON DILATION A Balloon catheter 3.0 x 8 mm NC Trek RX was inserted and inflated up to 20atm for 24seconds. Repeat angiography revealed the following post-dilatation results: 30% stenosis. Additional Inflation: 22atm for 12seconds. Additional Inflation: 24atm for 13seconds. A 3.5 x 8 mm NC Trek RX balloon was inflated up to 22 blaze for 26 seconds. Additional inflation: 24 blaze for 13 seconds. Finally, a 4.0 x 8 mm NC Trek RX balloon was inflated up to 18 blaze for 17 seconds. Additional inflations: 22 blaze for 18 seconds; 24 blaze for 10 seconds. Final angiography reveals 20 % stenosis with NORMA 3 flow. COMMENTS Residual 20% stenosis despite NC balloon at high pressures, suggesting an eccentric plaque. Additional inflations were not performed. Conclusion 1. 99% instent restenosis noted of a stent in the proximal lad with thrombus noted 2. no significant restenosis noted of stents in the mid lad, proximal circumflex, and proximal rca 3. LVEF 25-30% 4. successful placement of a new drug eluting stent in the proximal lad with a residual 20% stenosis despite high pressure inflations using a noncompliant balloon. 5. Suspect an eccentric plaque in the proximal lad Recommendations Cardiac Rehabilitation Referral Aggressive Medical Therapy <ELECTRONICALLY SIGNED> By: Alexi Stack MD, [facility] 10/24/19 1557 [id number] [id number] Stack MD, FAC /INF
[2019-10-25] VITALS (8 sets, daily range): BP systolic 108–137; BP diastolic 40–73
[2019-10-25 02:07] LABS: GLYCOHEMOGLOBIN (HGB A1C) 12.7 % (4.8-5.6)
[2019-10-25 05:22] LABS: HEMATOCRIT 27.2 % (37.0-47.0); HEMOGLOBIN 9.1 gm/dL (12.0-15.0); MCH 31.6 pg (26.0-34.0); MCHC 33.5 g/dL (28.0-37.0); MCV 94.2 fL (80.0-100.0); MPV 8.4 fl. (7.2-11.1); RBC 2.88 mil/uL (4.20-5.00); WBC 9.9 thou/uL (4.0-11.0)
[2019-10-25 05:38] LABS: CALCIUM 8.4 mg/dL (8.5-10.1); CREATININE 1.7 mg/dL (0.6-1.3); POTASSIUM 5.2 mmol/L (3.5-5.1)
[2019-10-25 05:45] LABS: CHOLESTEROL 151 mg/dL (<200); HDL CHOLESTEROL 53 mg/dL (>40); LDL CHOLESTEROL 83 mg/dL (<100); TC:HDL 2.8 Ratio (Not establshd); TRIGLYCERIDE 79 mg/dL (<150); VLDL 16 mg/dL (<40)
[2019-10-25 06:21] LABS: SERUM ASSESSMENT CLEAR; TROPONIN-I LEVEL 2.34 ng/mL (<0.06)
--- NOTE | 2019-10-25 09:15 | CON ---
[address] [address] CONSULTATION Name: GUCCI GUTHRIE Room: [address] IN M.R.#: [id number] Admission: 10/24/19 Attend Phys: Nadja Francois Discharge: Date of : 48 Report #: [id number] THIS REPORT FOR: //name// CC: Maria Del Carmen Pereyra DATE OF SERVICE: 10/24/2019 INFECTIOUS DISEASE CONSULTATION ATTENDING PHYSICIAN: Nadja Pereyra MD REASON FOR CONSULTATION: Pneumonitis. HISTORY OF PRESENT ILLNESS: Chart reviewed, the patient examined. This is a 69-year-old with known diabetes mellitus type 2, also has been complicated by vasculopathy, has known coronary artery disease who was admitted to the Emergency Room with a combination of signs and symptoms including cough that has been progressively worsening, productive of yellowish sputum, also progressive dyspnea, did have some chest-related pain as well, was evaluated and felt to have a component of angina, has been taken to the dental laboratory technician where she underwent stenting of the proximal LAD, did have a myocardial infarction. She is seen post-procedure, she is generally lucid. Denies significant gastrointestinal-related complaints. States her appetite has been reasonably well. She is not aware of any fevers or chills in recent days. Chest x-ray did show some perihilar inflammation and peribronchial inflammation with patchy bibasilar interstitial infiltrates suspected bilateral interstitial pneumonitis. ALLERGIES: TO VANCOMYCIN. CURRENT MEDICATIONS: Include atorvastatin, carvedilol, clopidogrel, aspirin and insulin lispro. PAST MEDICAL HISTORY: As described above, diabetes mellitus type 2 complicated by vasculopathy, has known coronary artery disease, acute myocardial infarction, arterial stenting, hypertension, diabetic retinopathy, history of gout, hyperlipidemia, hypothyroidism and chronic anemia. SOCIAL HISTORY: Never smoker. No ethanol or illicit drug use. FAMILY HISTORY: Noncontributory. REVIEW OF SYSTEMS: Otherwise, unremarkable 10-point review of systems with exception of the above. PHYSICAL EXAMINATION: [place] [address] CONSULTATION Name: GUCCI GUTHRIE Room: [address] IN [facility].#: [id number] Admission: 10/24/19 Attend Phys: Nadja romo [place] Discharge: Date of : 48 Report #: [id number] GENERAL: She is lethargic, in [id number] respiratory distress. She is on supplemental oxygen. VITAL SIGNS: Temperature 98.1, pulse 72, respirations 18 and blood pressure 128/40. SKIN: Warm, dry. No rashes. HEENT: Normocephalic. Extraocular muscles intact. NECK: Supple. LUNGS: Few scattered coarse breath sounds. HEART: Regular, I do not appreciate murmur. ABDOMEN: Soft, it is distended. There are no peritoneal signs. GENITOURINARY AND RECTAL: Deferred. LABORATORY DATA: Chest x-ray as described above, perihilar inflammation suspected pneumonitis. TSH of 2.632. Troponin elevated 2.11. Influenza antigen was negative. Electrolytes: Sodium 139, potassium 4.4, chloride 105, bicarbonate is 28, anion gap of 6, BUN and creatinine of 38 and 1.8, glucose of 339. Albumin of 3.2, total protein of 6.7. CBC: White count 11.1, hemoglobin and hematocrit of 10.6 and 31.8, and platelets of 254. ASSESSMENT AND PLAN: Pneumonitis, likely multifactorial, certainly a component of congestive heart failure, it is difficult to ascertain. She has had symptoms for a number of weeks. Seemingly, it has worsened over the course of last 24-36 hours. It is not reasonable to utilize empiric therapy. We will check a pneumococcal as well as a Legionella antigen screen for MRSA and collect the sputum culture. She has had a course of next 24-48 hours. <ELECTRONICALLY SIGNED> By: Wei Mendez MD 10/25/19 0915 [id number] Mendez MD /nt
[2019-10-25] MEDS ORDERED: NEURONTIN 300M300 M2 PO (09:55)
[2019-10-26 04:10] VITALS: BP 104/47
[2019-10-26 04:56] VITALS: BP 110/56
[2019-10-26 08:00] VITALS: BP 126/53
[2019-10-26 11:07] VITALS: BP 104/39
[2019-10-26] MEDS ORDERED: COREG6.25 MG PO (13:46)
[2019-10-26] MEDS ORDERED: CLOPIDOGREL75 MG PO (13:46)
[2019-10-26 16:37] VITALS: BP 118/71
[2019-10-26 20:00] VITALS: BP 138/59
[2019-10-27] VITALS: BP 129/48
[2019-10-27 04:00] VITALS: BP 125/44
[2019-10-27 06:05] LABS: HEMOGLOBIN 8.5 gm/dL (12.0-15.0); MCHC 34.2 g/dL (28.0-37.0); MCV 93.8 fL (80.0-100.0); MPV 8.2 fl. (7.2-11.1); RBC 2.66 mil/uL (4.20-5.00); RDW-CV 14.2 % (10.5-14.5); WBC 7.6 thou/uL (4.0-11.0)
[2019-10-27 08:07] VITALS: BP 114/42
[2019-10-27 11:00] VITALS: BP 128/40
[2019-10-27] MEDS ORDERED: LEVAQUIN 500 M500 M2 PO ×2 (11:28→13:56)
[2019-10-27 12:00] VITALS: BP 119/55
[2019-10-27] MEDS ORDERED: NITROGLYCERIN0.4 MG SUBLING (13:51)
[2019-10-27] MEDS ORDERED: LASIX 40 MG TAB40 MG PO (13:53)
[2019-10-27] MEDS ORDERED: LEVAQUIN 500 M500 M4 PO (13:58)
--- NOTE | 2019-10-27 16:21 | CON ---
[address] [address] CONSULTATION Name: GUCCI GUTHRIE Room: [address] IN M.R.#: [id number] Admission: 10/24/19 Attend Phys: Nadja Francois Discharge: 10/27/19 Date of : 48 Report #: [id number] THIS REPORT FOR: //name// CC: Maria Del Carmen Pereyra DATE OF SERVICE: 10/24/2019 HISTORY OF PRESENT ILLNESS: The patient is a 69-year-old single white female, who I was asked to see in the hospital today after she complained of chest pain. The patient has an extensive past medical history. She notes about 12 years ago, she had 3 stents placed in her coronary arteries, although she is not sure what hospital was done at. In June, she had 3 additional stents placed at [facility] in [facility]. She went to cardiac rehabilitation. She was doing well until recently she has had a cough and congestion. She was placed on antibiotics. She is not very active at this time because of chronic back pain and uses a cane. Last night, she felt an episode of chest discomfort, went to her left arm, she felt short of breath. Her son brought her to the Emergency Room last night. I was asked to see her for further evaluation and treatment. She notes the chest pain was worse when she took a cough. It was not related to food. She has had no bleeding. She does note occasional episodes where her heart rate will increase. She apparently had a syncopal spell in July because of low blood pressure, was taken off blood pressure medications. She has had no fever, lower extremity edema. PAST MEDICAL HISTORY: She has had surgery on her right arm following an accident. She has had a hysterectomy, back surgery, diabetes, hyperlipidemia. Her previous admissions here to [facility] included last July when she was admitted with hypotension. Possible neuropathy, chronic kidney disease. CURRENT MEDICATIONS: Consists of aspirin 81 mg a day, Lipitor 80 mg a day, insulin, Synthroid, Plavix. She takes Lasix occasionally for edema. ALLERGIES: SHE HAS A PREVIOUS INTOLERANCE TO CODEINE AND VANCOMYCIN. FAMILY HISTORY: Her father had heart disease. SOCIAL HISTORY: She is , lives with her son here in [place]. She used to work for the [employer]. No smoking. No alcohol abuse. REVIEW OF SYSTEMS: She is overweight, being 5 feet 5 inches, weighing 210 pounds. She has no history of stroke, asthma, liver disease. She has chronic kidney disease. No cancer. No psychiatric illness. No chronic skin condition. She has a history of peripheral neuropathy. She has had a history of a cardiomyopathy with an ejection fraction of 30% [place] [address] CONSULTATION Name: GUCCI GUTHRIE Room: [address] IN M.R.#: [id number] Admission: 10/24/19 Attend Phys: Nadja Francois Discharge: 10/27/19 Date of : 48 Report #: [id number] PHYSICAL EXAMINATION: GENERAL: Revealed an elderly female lying in bed. She appeared in no acute distress. VITAL SIGNS: She had a blood pressure of 120/60, pulse 70. She is afebrile. HEENT: She was anicteric. Conjunctivae are pink. Mucous membranes moist. NECK: Veins do not appear distended. No carotid bruits. CHEST: Clear to auscultation. CARDIOVASCULAR: Regular rate and rhythm. ABDOMEN: Obese. EXTREMITIES: Had no edema. Dorsalis pedis pulse 1+. SKIN: Cool and dry. NEUROLOGIC: Nonfocal. LYMPH: No adenopathy. MUSCULOSKELETAL: No joint effusion. RADIOLOGICAL DATA: Her ECG on admission showed a sinus rhythm, occasional PVC. There were nonspecific ST and T-wave changes suggestive of ischemia. Her workup, she actually had an echocardiogram done in 07/2018 here at [facility] that showed ejection fraction of 40% with inferior wall hypokinesis. Her chest x-ray last night, she had a portable chest x-ray that showed normal heart size, clear lung quiroga, possible basilar infiltrate. Previous CT scan of the head done last July after a syncopal spell showed chronic changes, no acute abnormality. LABORATORY DATA: Her lab work last night, sodium 139, BUN 38, creatinine 1.8 and has been as high as 2.0 last July, glucose 339, alkaline phosphate is 171. Her troponin 1.63 on admission, is 2.11 this morning. BNP 5638. TSH 2.6. Her white blood cell count 11.1, hematocrit 31.8. IMPRESSION AND RECOMMENDATIONS: 1. Non-ST elevation myocardial infarction. Previous stenting. Recommend repeat cardiac catheterization. 2. Chronic kidney disease. I would use Visipaque. 3. History of a cardiomyopathy. The patient cannot tolerate beta-petros, PINO inhibitor nor ARB because of low blood pressure. 4. Diabetes. 5. Anemia. No history of bleeding. 6. Obesity. 7. Peripheral neuropathy. 8. Spinal stenosis. The patient is not very active at this time. <ELECTRONICALLY SIGNED> By: Alexi Stack MD, [facility] 10/27/19 1621 [id number] Eloy Stack MD, [place] /nt
== END 2019-10-27 15:56 | disposition home or self-care (01) | DRG 246 ==
LOC: M.ERS 23:04 → M.2W 10-24 00:45 → M.TBA-ER 10-24 00:45 → M.2W 10-24 01:25
PROVIDERS: Internal Medicine Cardiovascular Disease; Personal Emergency Response Attendant; ADMIT Family Medicine
PROC: B211YZZ Fluoroscopy of Multiple Coronary Arteries using Other Contrast (ICD-10-PCS; principal; 2019-10-24)
PROC: B215YZZ Fluoroscopy of Left Heart using Other Contrast (ICD-10-PCS; principal; 2019-10-24)
PROC: 027034Z Dilation of Coronary Artery, One Artery with Drug-eluting Intraluminal Device, Percutaneous Approach (ICD-10-PCS; principal; 2019-10-24)
PROC: 4A023N7 Measurement of Cardiac Sampling and Pressure, Left Heart, Percutaneous Approach (ICD-10-PCS; principal; 2019-10-24)
DX: I21.4 Non-ST elevation (NSTEMI) myocardial infarction (principal); J18.9 Pneumonia, unspecified organism; I50.23 Acute on chronic systolic (congestive) heart failure; M86.9 Osteomyelitis, unspecified; I13.0 Hypertensive heart and chronic kidney disease with heart failure and stage 1 through stage 4 chronic kidney disease, or unspecified chronic kidney disease; I42.9 Cardiomyopathy, unspecified; M31.9 Necrotizing vasculopathy, unspecified; I25.10 Atherosclerotic heart disease of native coronary artery without angina pectoris; E11.319 Type 2 diabetes mellitus with unspecified diabetic retinopathy without macular edema; M10.9 Gout, unspecified; E78.5 Hyperlipidemia, unspecified; E03.9 Hypothyroidism, unspecified; M51.36 Other intervertebral disc degeneration, lumbar region; E11.22 Type 2 diabetes mellitus with diabetic chronic kidney disease; N18.3 Chronic kidney disease, stage 3 (moderate); I50.9 Heart failure, unspecified; M54.9 Dorsalgia, unspecified; G89.29 Other chronic pain; D64.9 Anemia, unspecified; E66.9 Obesity, unspecified; E11.42 Type 2 diabetes mellitus with diabetic polyneuropathy; M48.00 Spinal stenosis, site unspecified; Z95.5 Presence of coronary angioplasty implant and graft; Z98.1 Arthrodesis status; Z90.710 Acquired absence of both cervix and uterus; Z88.1 Allergy status to other antibiotic agents; Z88.5 Allergy status to narcotic agent; Z91.81 History of falling; Z88.8 Allergy status to other drugs, medicaments and biological substances; Z82.49 Family history of ischemic heart disease and other diseases of the circulatory system; I25.2 Old myocardial infarction; Z68.34 Body mass index [BMI] 34.0-34.9, adult; Z79.82 Long term (current) use of aspirin; Z79.899 Other long term (current) drug therapy

== ENCOUNTER 2019-10-28 17:40 | Emergency (ER) | payer OTHER ==
[~2019-10-28] VITALS: Ht 160 cm; Wt 118.1 kg
[~2019-10-28 17:40] MED LIST changes: +CLOPIDOGREL75 MG PO; +COREG6.25 MG PO; +LASIX 40 MG TAB40 MG PO; +LEVAQUIN 500 M500 M2 PO; +LEVAQUIN 500 M500 M4 PO; +NEURONTIN 300M300 M2 PO; +NITROGLYCERIN0.4 MG SUBLING
[2019-10-28 18:00] VITALS: BP 00/00
== END 2019-10-28 18:00 ==
LOC: M.ERS 17:40
DX: I46.9 Cardiac arrest, cause unspecified (principal); I13.0 Hypertensive heart and chronic kidney disease with heart failure and stage 1 through stage 4 chronic kidney disease, or unspecified chronic kidney disease; I50.9 Heart failure, unspecified; E11.22 Type 2 diabetes mellitus with diabetic chronic kidney disease; N18.3 Chronic kidney disease, stage 3 (moderate); M10.9 Gout, unspecified; E03.9 Hypothyroidism, unspecified; E78.5 Hyperlipidemia, unspecified; Z79.4 Long term (current) use of insulin; Z88.5 Allergy status to narcotic agent; Z88.1 Allergy status to other antibiotic agents